=== PATIENT | female | born 1960 | race Caucasian/White ===

== ENCOUNTER 2019-01-27 16:40 | Inpatient (IN) | payer MEDICAID, OTHER ==
[~2019-01-27] VITALS: Ht 152.4 cm; Wt 66.7 kg
[2019-01-27] MEDS ORDERED: SODIUM CHLORIDE 0.9% 1,000 ML IV ONE (17:54)
[2019-01-27 18:16] LABS: CLARITY URINE CLEAR (CLEAR); COLOR URINE YELLOW (YELLOW); KETONES URINE NEGATIVE (NEGATIVE); LEUKOCYTE ESTERASE URINE 1+ (NEGATIVE); NITRITE URINE NEGATIVE (NEGATIVE); OCCULT BLOOD URINE NEGATIVE (NEGATIVE); PH URINE 5.5 (4.5-8.0); PROTEIN URINE NEGATIVE (NEGATIVE); SPECIFIC GRAVITY URINE 1.008 (1.005-1.030); UROBILINOGEN URINE 0.2 E.U./dL (0.2-1.0)
[2019-01-27 18:27] LABS: BASOPHILS % 0.2 % (0.0-2.0); EOSINOPHILS % 0.5 % (0.0-5.0); HEMATOCRIT. 42.1 % (36.0-48.0); HEMOGLOBIN. 13.6 g/dL (12.0-16.0); LYMPHOCYTES % 11.7 % (20.0-50.0); MEAN CORPUSCULAR VOLUME 83.4 fL (81.0-99.0); MEAN PLATELET VOLUME 9.6 fl (7.4-10.4); MONOCYTES % 6.4 % (2.0-8.0); NEUTROPHILS % 81.2 % (40.0-76.0); PLATELET 284 x1000/uL (130-400); RED BLOOD CELL COUNT 5.05 mill/uL (4.2-5.4); RED CELL DISTRIBUTION WIDTH 14.9 % (11.6-14.6)
[2019-01-27 18:29] LABS: CHLORIDE 106 mEq/L (98-107)
[2019-01-27] MEDS ORDERED: SODIUM CHLORIDE 0.9% 1000ML BAG (SEPSIS BOLUS) IV ONE (19:45)
[2019-01-27] MEDS ORDERED: CEFTRIAXONE 1 G PREMIX 50 ML IV ONE (19:45)
[2019-01-27] MEDS ORDERED: POTASSIUM CHLORIDE 20MEQ TABLET SR PO ONE (20:15)
[2019-01-27] MEDS ORDERED: DEXT 5%/0.45% NACL KCL 20MEQ/L 1,000 ML IV ONE (22:49)
[2019-01-27] MEDS ORDERED: DEXTROSE 50% WATER 50ML SYRINGE IV ONE (23:00)
[2019-01-28] MEDS ORDERED: ONDANSETRON HCL 4MG/2ML INJ IV PRN (08:45)
[2019-01-28] MEDS ORDERED: CEFTRIAXONE 1 G PREMIX 50 ML IV SCH (08:45)
[2019-01-28] MEDS ORDERED: HYDRALAZINE 20MG/ML VIAL IV PRN (08:45)
[2019-01-28 08:51] LABS: BASOPHILS % 0.5 % (0.0-2.0); EOSINOPHILS % 1.2 % (0.0-5.0); HEMATOCRIT. 37.1 % (36.0-48.0); HEMOGLOBIN. 12.1 g/dL (12.0-16.0); LYMPHOCYTES % 20.3 % (20.0-50.0); MEAN CORPUSCULAR VOLUME 82.9 fL (81.0-99.0); MEAN PLATELET VOLUME 9.2 fl (7.4-10.4); MONOCYTES % 6.4 % (2.0-8.0); NEUTROPHILS % 71.6 % (40.0-76.0); PLATELET 264 x1000/uL (130-400); RED BLOOD CELL COUNT 4.48 mill/uL (4.2-5.4); RED CELL DISTRIBUTION WIDTH 14.9 % (11.6-14.6)
[2019-01-28 08:58] LABS: CHLORIDE 111 mEq/L (98-107)
[2019-01-28] MEDS ORDERED: AMLODIPINE 5MG TABLET PO SCH (13:00)
[2019-01-28 13:44] VITALS: BP 163/80
[2019-01-28] MEDS: DEXT 5%/0.45% NACL 1000ML 1,000 ML IV SCH ×2 (13:54→20:58)
[2019-01-28 15:53] VITALS: BP 163/80
[2019-01-28 17:35] VITALS: BP 162/83
[2019-01-28] MEDS: LOSARTAN POTASSIUM 50 MG TABLET PO SCH (17:35)
[2019-01-28] MEDS ORDERED: DEXTROSE 50% WATER 50ML SYRINGE IV PRN (18:30)
[2019-01-28] MEDS: BLOOD SUGAR DIAGNOSTIC STRIP TEST SCH ×2 (19:32→20:57)
[2019-01-28 20:00] VITALS: BP 135/66
[2019-01-28] MEDS ORDERED: INFLUENZA VIRUS VACCINE(AFLURIA) 0.5ML SYR IM ONE (20:00)
[2019-01-28] MEDS ORDERED: PNEUMOCOCCAL 23-VAL P-SAC VAC 0.5 ML IM ONE (20:00)
[2019-01-28] MEDS ORDERED: ZOLPIDEM TARTRATE 5MG TABLET PO PRN (20:15)
[2019-01-28] MEDS: CEFTRIAXONE 1 G PREMIX 50 ML IV SCH (20:51)
[2019-01-29 00:14] VITALS: BP 131/79
[2019-01-29 04:00] VITALS: BP 150/75
[2019-01-29 05:58] LABS: BASOPHILS % 0.7 % (0.0-2.0); EOSINOPHILS % 2.1 % (0.0-5.0); HEMATOCRIT. 39.1 % (36.0-48.0); HEMOGLOBIN. 12.9 g/dL (12.0-16.0); LYMPHOCYTES % 24.7 % (20.0-50.0); MEAN CORPUSCULAR HEMOGLOBIN 27.3 pg (28.0-32.0); MEAN CORPUSCULAR VOLUME 82.5 fL (81.0-99.0); MEAN PLATELET VOLUME 9.5 fl (7.4-10.4); MONOCYTES % 9.7 % (2.0-8.0); NEUTROPHILS % 62.8 % (40.0-76.0); PLATELET 244 x1000/uL (130-400); RED BLOOD CELL COUNT 4.74 mill/uL (4.2-5.4); RED CELL DISTRIBUTION WIDTH 14.9 % (11.6-14.6)
[2019-01-29 06:33] LABS: CHLORIDE 108 mEq/L (98-107)
[2019-01-29] MEDS: BLOOD SUGAR DIAGNOSTIC STRIP TEST SCH ×4 (07:48→20:47)
[2019-01-29 08:00] VITALS: BP 140/77
[2019-01-29] MEDS: AMLODIPINE 5MG TABLET PO SCH ×2 (08:46→16:46)
[2019-01-29] MEDS: LOSARTAN POTASSIUM 50 MG TABLET PO SCH (08:46)
[2019-01-29] MEDS: DEXT 5%/0.45% NACL 1000ML 1,000 ML IV SCH (08:51)
[2019-01-29] MEDS ORDERED: GEMF600T4 PO ×2 (09:32→09:38)
[2019-01-29] MEDS ORDERED: LOSA50TA20 MT (09:38)
[2019-01-29] MEDS ORDERED: GLIP10TA10 MT (09:38)
[2019-01-29] MEDS ORDERED: METF-416 MT (09:38)
[2019-01-29] MEDS ORDERED: DILT240T12 MT (09:38)
[2019-01-29 12:00] VITALS: BP 138/72
[2019-01-29 16:00] VITALS: BP 140/76
[2019-01-29 20:00] VITALS: BP 126/85
[2019-01-29] MEDS: CEFTRIAXONE 1 G PREMIX 50 ML IV SCH (20:44)
[2019-01-30 00:05] VITALS: BP 120/61
[2019-01-30 04:00] VITALS: BP 132/67
[2019-01-30] MEDS: BLOOD SUGAR DIAGNOSTIC STRIP TEST SCH ×2 (07:22→12:35)
[2019-01-30 08:00] VITALS: BP 118/80
[2019-01-30] MEDS: AMLODIPINE 5MG TABLET PO SCH (09:00)
[2019-01-30] MEDS: LOSARTAN POTASSIUM 50 MG TABLET PO SCH (09:00)
[2019-01-30 12:00] VITALS: BP 140/77
[2019-01-30 14:34] VITALS: BP 140/77
[2019-01-30 16:00] VITALS: BP 137/75
== END 2019-01-30 17:12 | disposition home or self-care (01) | DRG 420 ==
LOC: ER 16:40 → EDBEDREQ 20:02 → EDBEDREQTM 20:02 → ENRESERV 22:11 → CANRESERV 22:11 → 7WST 22:50 → EDBEDREQSVC 22:59 → EDBEDREQTM 23:14 → EDBEDREQ 23:14 → ENRESERV 01-28 07:13
PROVIDERS: ADMIT Internal Medicine; ATTEND Internal Medicine
DX: E11.649 Type 2 diabetes mellitus with hypoglycemia without coma (principal); G93.41 Metabolic encephalopathy; E78.5 Hyperlipidemia, unspecified; E87.6 Hypokalemia; I10 Essential (primary) hypertension; N39.0 Urinary tract infection, site not specified; E78.00 Pure hypercholesterolemia, unspecified; E86.0 Dehydration; Z79.84 Long term (current) use of oral hypoglycemic drugs
CPT/HCPCS: 36415; 71045; 80048; 80061; 82962; 83036; 83605; 84443; 84484; 90686; 90732; 93005; 93970; 96365; 96366; 96375; 99291; C1893; J0696; J7030; J7050